=== PATIENT | female | born 1945 | race American Indian/Alaskan Native ===

== ENCOUNTER 2017-04-24 10:24 | Inpatient (IN) | payer MEDICARE ==
[2017-04-24] MEDS ORDERED: TESSALON PERLES PO ONE (13:35)
--- NOTE | 2017-04-24 13:46 | Emergency Department Report ---
- General Chief Complaint: Upper Respiratory Infection Stated Complaint: FLU SX Time Seen by Provider: 04/24/17 13:34 Source: patient Mode of arrival: Ambulatory Limitations: No Limitations - History of Present Illness Initial Comments: This is a 72-year-old female nontoxic, well nourished in appearance, no acute signs of distress presents to the ED with c/o of frontal sinus pain, productive cough, rhinorrhea and nasal congestion 1 day. Patient describes productive cough as yellow mucus production. Patient denies any recent travels, long car rides, or recent hospital stays. Denies any calf pain or calf tenderness. Patient denies any hemoptysis, chest pain, shortness of breath, difficulty breathing, back pain, abdominal pain, pelvic pain, numbness, tingling, nausea or vomiting. Patient denies headache or stiff neck. Patient denies any allergies. Past medical history includes diabetes. MD Complaint: cough, rhinorrhea, nasal congestion, sinus pain -: days(s) (1) Severity: mild Severity scale (0 -10): 8 Quality: aching Consistency: constant Improves With: nothing Worsens With: nothing Associated Symptoms: rhinorrhea, nasal congestion, cough. denies: fever, chills , myalgias, diaphoresis, headache, sore throat, stiff neck, chest pain, shortness of breath, abdominal pain, nausea, vomiting, diarrhea, dysuria, rash, confusion, right sweats, weight loss, epistaxis, hoarseness, ear pain Treatments Prior to Arrival: none - Related Data Allergies Allergy/AdvReac Type Severity Reaction Status Date / Time No Known Allergies Allergy Verified 04/24/17 11:02 ED Review of Systems ROS: Stated complaint: FLU SX Other details as noted in HPI Constitutional: denies: chills, fever Eyes: denies: eye pain, eye discharge, vision change ENT: denies: ear pain, throat pain Respiratory: cough. denies: shortness of breath, wheezing Cardiovascular: denies: chest pain, palpitations Endocrine: no symptoms reported Gastrointestinal: denies: abdominal pain, nausea, diarrhea Genitourinary: denies: urgency, dysuria, discharge Musculoskeletal: denies: back pain, joint swelling, arthralgia Skin: denies: rash, lesions Neurological: denies: headache, weakness, paresthesias Psychiatric: denies: anxiety, depression Hematological/Lymphatic: denies: easy bleeding, easy bruising ED Past Medical Hx - Past Medical History Previous Medical History?: Yes Hx Diabetes: Yes - Surgical History Past Surgical History?: Yes Additional Surgical History: . cataract surgery - Social History Smoking Status: Never Smoker Substance Use Type: None ED Physical Exam - General Limitations: No Limitations General appearance: alert, in no apparent distress - Head Head exam: Present: atraumatic, normocephalic, normal inspection - Eye Eye exam: Present: normal appearance, PERRL, EOMI. Absent: scleral icterus, conjunctival injection, nystagmus, periorbital swelling, periorbital tenderness Pupils: Present: normal accommodation - ENT ENT exam: Present: normal exam, normal orophraynx, mucous membranes moist, TM's normal bilaterally, normal external ear exam - Neck Neck exam: Present: normal inspection, full ROM. Absent: tenderness, meningismus, lymphadenopathy, thyromegaly - Respiratory Respiratory exam: Present: normal lung sounds bilaterally. Absent: respiratory distress, wheezes, rales, rhonchi, stridor, chest wall tenderness, accessory muscle use, decreased breath sounds, prolonged expiratory - Cardiovascular Cardiovascular Exam: Present: regular rate, normal rhythm, normal heart sounds. Absent: bradycardia, tachycardia, irregular rhythm, systolic murmur, diastolic murmur, rubs, gallop - GI/Abdominal GI/Abdominal exam: Present: soft, normal bowel sounds. Absent: distended, tenderness, guarding, rebound, rigid, diminished bowel sounds - Rectal Rectal exam: Present: deferred - Extremities Exam Extremities exam: Present: normal inspection, full ROM, normal capillary refill. Absent: tenderness, pedal edema, joint swelling, calf tenderness - Back Exam Back exam: Present: normal inspection, full ROM. Absent: tenderness, CVA tenderness (R), CVA tenderness (L), muscle spasm, paraspinal tenderness, vertebral tenderness, rash noted - Neurological Exam Neurological exam: Present: alert, oriented X3, CN II-XII intact, normal gait, reflexes normal - Psychiatric Psychiatric exam: Present: normal affect, normal mood - Skin Skin exam: Present: warm, dry, intact, normal color. Absent: rash - Other Other exam information: Negative Holmans test. No calf pain or tenderness. ED Course Vital Signs 04/24/17 11:02 Temperature 98.7 F Pulse Rate 90 Respiratory 18 Rate Blood Pressure 180/82 O2 Sat by Pulse 99 Oximetry - Reevaluation(s) Reevaluation #1: 04/24/17 13:45 Patient is speaking in full sentences with no signs of distress noted. - Consultations Consultation #1: 04/24/17 16:11 Dr. Boyce has been consulted about patient history. physical exam, and agrees for admission. Consultation #2: 04/24/17 16:11 Dr. Tidwell was consulted about patient history, physical exam, and labs and agrees to admission and accepts patient to his services. Dr. Tidwell requested for me to bridge the orders to med/surg and start patient on 2G Rocephine and 500mg of Azithromycin. ED Medical Decision Making - Lab Data Result diagrams: 04/24/17 15:20 04/24/17 15:20 - Medical Decision Making This is a 72-year-old female that presents with upper resp infection. Patient is stable and was examined by me. Chest x-ray has been obtained and dictated by radiologist within normal limits. Patient is notified of x-ray results with noted by the patient. Patient received tessalon perrl which patient stated symptoms of cough is improving and subsided. Positive Influenza A swab. Labs obtained with elevated Lactic acid. Dr. Boyce was consulted. Dr. Tidwell was consulted and accepts patient to his services. Patient is in no signs of distress. Wells criteria 0 points for PE or DVT. Patient is put on cardiac montior and RN was told to take vitals Q15 mins. At time time of admission, the patient does not seem toxic or ill in appearance. No acute signs of distress noted. Patient agrees to admission treatment plan of care. No further questions noted by the patient. Patient was instructed to increase hydration and rest. Critical care attestation.: If time is entered above; I have spent that time in minutes in the direct care of this critically ill patient, excluding procedure time. ED Disposition Clinical Impression: Influenza Sepsis Qualifiers: Sepsis type: sepsis due to unspecified organism Qualified Code(s): A41.9 - Sepsis, unspecified organism Disposition: OP ADMIT IP TO THIS HOSP Is pt being admited?: Yes Does the pt Need Aspirin: No Condition: Stable
--- NOTE | 2017-04-24 15:18 | XRay Report ---
FINAL REPORT PROCEDURE: XR CHEST ROUTINE 2V TECHNIQUE: PA and lateral chest radiographs were obtained. CPT 42749 HISTORY: cough COMPARISON: No prior studies are available for comparison. FINDINGS: Heart: Normal. Mediastinum/Vessels: Normal. Lungs/Pleural space: No infiltrate, effusion, or pneumothorax. Bony thorax: No acute osseous abnormality. Other: IMPRESSION: No pulmonary infiltrates are identified.
[2017-04-24 15:38] LABS: Hematocrit 38.6 % (30.3-42.9); Hemoglobin 12.2 gm/dl (10.1-14.3); Mean Corpuscular HGB Conc 32 % (30-34); Mean Corpuscular Volume 77 fl (79-97); Platelet Count 286 K/mm3 (140-440); Red Blood Count 5.01 M/mm3 (3.65-5.03); Red Cell Distribution Width 16.2 % (13.2-15.2)
[2017-04-24 15:44] LABS: Mean Corpuscular Hemoglobin 24 pg (28-32)
[2017-04-24 15:51] LABS: BUN/Creatinine Ratio 10; Blood Urea Nitrogen 8 mg/dL (7-17); Calcium 9.1 mg/dL (8.4-10.2); Hemolysis Index 14
[2017-04-24] MEDS ORDERED: NACL 0.9% 1000 ML 1,000 ML IV ONE (15:52)
[2017-04-24] MEDS ORDERED: ROCEPHIN/NS 2 GM/100 ML 2 GM/100 ML BAG IV ONE (16:08)
[2017-04-24] MEDS ORDERED: ZITHROMAX 500 MG in NACL 0.9% 250ML 250 ML IV ONE (16:08)
[2017-04-24 16:29] LABS: Band Neutrophils # (Manual) 0.1 K/mm3; Ovalocytes 1+; Total Cells Counted 100
[2017-04-24] MEDS ORDERED: cefTRIAXone 2 GM in NACL 0.9% 20 ML IV ONE (16:45)
[2017-04-24] MEDS ORDERED: ZOFRAN ONE (17:39)
[2017-04-24] MEDS ORDERED: ZOFRAN IV ONE (18:14)
[2017-04-24] MEDS ORDERED: TYLENOL PO ONE (18:42)
--- NOTE | 2017-04-24 21:27 | History and Physical Report ---
History of Present Illness Date of examination: 04/24/17 Date of admission: 04/24/17 16:07 Chief complaint: chief complaint: Cough and fever for one the History of present illness: History of Present Illness This is a 72-year-old female nontoxic, well nourished in appearance, no acute signs of distress presents to the ED with c/o of frontal sinus pain, productive cough, rhinorrhea and nasal congestion 1 day. Patient describes productive cough as yellow mucus production. Patient denies any recent travels, long car rides, or recent hospital stays. Denies any calf pain or calf tenderness. Patient denies any hemoptysis, chest pain, shortness of breath, difficulty breathing, back pain, abdominal pain, pelvic pain, numbness, tingling, nausea or vomiting. Patient denies headache or stiff neck. Patient denies any allergies. Past medical history includes diabetes. Associated Symptoms: rhinorrhea, nasal congestion, cough. denies: fever, chills , myalgias, diaphoresis, headache, sore throat, stiff neck, chest pain, shortness of breath, abdominal pain, nausea, vomiting, diarrhea, dysuria, rash, confusion, right sweats, weight loss, epistaxis, hoarseness, ear pain Treatments Prior to Arrival: none - Related Data Allergies Allergy/AdvReac Type Severity Reaction Status Date / Time No Known Allergies Allergy Verified 04/24/17 11:02 Past Medical History Previous Medical History?: Yes Hx Diabetes: Yes Surgical History Past Surgical History?: Yes Additional Surgical History: . cataract surgery Social History Smoking Status: Never Smoker Substance Use Type: None Review of Systems ROS: Stated complaint: FLU SX Other details as noted in HPI Constitutional: denies: chills, fever Eyes: denies: eye pain, eye discharge, vision change ENT: denies: ear pain, throat pain Respiratory: cough. denies: shortness of breath, wheezing Cardiovascular: denies: chest pain, palpitations Endocrine: no symptoms reported Gastrointestinal: denies: abdominal pain, nausea, diarrhea Genitourinary: denies: urgency, dysuria, discharge Musculoskeletal: denies: back pain, joint swelling, arthralgia Skin: denies: rash, lesions Neurological: denies: headache, weakness, paresthesias Psychiatric: denies: anxiety, depression Hematological/Lymphatic: denies: easy bleeding, easy bruising Medications and Allergies Allergies Allergy/AdvReac Type Severity Reaction Status Date / Time No Known Allergies Allergy Verified 04/24/17 11:02 Home Medications Medication Instructions Recorded Confirmed Last Taken Type Unobtainable 04/24/17 04/24/17 Unknown History Exam - Constitutional Vitals: Temp Pulse Resp BP Pulse Ox 100.6 F H 88 20 165/73 99 04/24/17 18:23 04/24/17 17:32 04/24/17 18:23 04/24/17 18:23 04/24/17 17:32 General appearance: Present: no acute distress, mild distress, well-nourished - EENT Eyes: Present: PERRL ENT: hearing intact, clear oral mucosa - Neck Neck: Present: supple, normal ROM - Respiratory Respiratory effort: normal Respiratory: bilateral: CTA, rhonchi - Cardiovascular Heart rate: 76 Rhythm: regular Heart Sounds: Present: S1 & S2. Absent: rub, click - Extremities Extremities: no ischemia, pulses intact, pulses symmetrical, No edema Peripheral Pulses: within normal limits - Abdominal General gastrointestinal: Present: soft, non-tender, non-distended, normal bowel sounds Female genitourinary: Present: normal - Rectal Rectal Exam: deferred - Integumentary Integumentary: Present: clear, warm, dry - Musculoskeletal Musculoskeletal: gait normal, strength equal bilaterally - Psychiatric Psychiatric: appropriate mood/affect, intact judgment & insight - Neurologic Neurologic: CNII-XII intact, moves all extremities - Allied Health Allied health notes reviewed: nursing, case management Results - Labs CBC & Chem 7: 04/24/17 15:20 04/24/17 15:20 Labs: Laboratory Last Values WBC 7.8 K/mm3 (4.5-11.0) 04/24/17 15:20 RBC 5.01 M/mm3 (3.65-5.03) 04/24/17 15:20 Hgb 12.2 gm/dl (10.1-14.3) 04/24/17 15:20 Hct 38.6 % (30.3-42.9) 04/24/17 15:20 MCV 77 fl (79-97) L 04/24/17 15:20 MCH 24 pg (28-32) L 04/24/17 15:20 MCHC 32 % (30-34) 04/24/17 15:20 RDW 16.2 % (13.2-15.2) H 04/24/17 15:20 Plt Count 286 K/mm3 (140-440) 04/24/17 15:20 [place] % (Auto) Managing Partner 04/24/17 15:20 Add Manual Diff Complete 04/24/17 15:20 Total Counted 100 04/24/17 15:20 Seg Neuts % (Manual) 72.0 % (40.0-70.0) H 04/24/17 15:20 Band Neutrophils % 1.0 % 04/24/17 15:20 Lymphocytes % (Manual) 11.0 % (13.4-35.0) L 04/24/17 15:20 Reactive Lymphs % (Man) 0 % 04/24/17 15:20 Monocytes % (Manual) 14.0 % (0.0-7.3) H 04/24/17 15:20 Eosinophils % (Manual) 1.0 % (0.0-4.3) 04/24/17 15:20 Basophils % (Manual) 1.0 % (0.0-1.8) 04/24/17 15:20 Metamyelocytes % 0 % 04/24/17 15:20 Myelocytes % 0 % 04/24/17 15:20 Promyelocytes % 0 % 04/24/17 15:20 Blast Cells % 0 % 04/24/17 15:20 Nucleated RBC % Not Reportable 04/24/17 15:20 Seg Neutrophils # Man 5.6 K/mm3 (1.8-7.7) 04/24/17 15:20 Band Neutrophils # 0.1 K/mm3 04/24/17 15:20 Lymphocytes # (Manual) 0.9 K/mm3 (1.2-5.4) L 04/24/17 15:20 Abs React Lymphs (Man) 0.0 K/mm3 04/24/17 15:20 Monocytes # (Manual) 1.1 K/mm3 (0.0-0.8) H 04/24/17 15:20 Eosinophils # (Manual) 0.1 K/mm3 (0.0-0.4) 04/24/17 15:20 Basophils # (Manual) 0.1 K/mm3 (0.0-0.1) 04/24/17 15:20 Metamyelocytes # 0.0 K/mm3 04/24/17 15:20 Myelocytes # 0.0 K/mm3 04/24/17 15:20 Promyelocytes # 0.0 K/mm3 04/24/17 15:20 Blast Cells # 0.0 K/mm3 04/24/17 15:20 WBC Morphology Not Reportable 04/24/17 15:20 Hypersegmented Neuts Not Reportable 04/24/17 15:20 Hyposegmented Neuts Not Reportable 04/24/17 15:20 Hypogranular Neuts Not Reportable 04/24/17 15:20 Smudge Cells Not Reportable 04/24/17 15:20 Toxic Granulation Not Reportable 04/24/17 15:20 Toxic Vacuolation Not Reportable 04/24/17 15:20 Dohle Bodies Not Reportable 04/24/17 15:20 Pelger-Huet Anomaly Not Reportable 04/24/17 15:20 Neftaly Rods Not Reportable 04/24/17 15:20 Platelet Estimate Appears normal 04/24/17 15:20 Clumped Platelets Not Reportable 04/24/17 15:20 Plt Clumps, EDTA Not Reportable 04/24/17 15:20 Large Platelets Not Reportable 04/24/17 15:20 Giant Platelets Not Reportable 04/24/17 15:20 Platelet Satelliting Not Reportable 04/24/17 15:20 Plt Morphology Comment Not Reportable 04/24/17 15:20 RBC Morphology Not Reportable 04/24/17 15:20 Dimorphic RBCs Not Reportable 04/24/17 15:20 Polychromasia Not Reportable 04/24/17 15:20 Hypochromasia Not Reportable 04/24/17 15:20 Poikilocytosis Not Reportable 04/24/17 15:20 Anisocytosis Not Reportable 04/24/17 15:20 Microcytosis 1+ 04/24/17 15:20 Macrocytosis Not Reportable 04/24/17 15:20 Spherocytes Not Reportable 04/24/17 15:20 Pappenheimer Bodies Not Reportable 04/24/17 15:20 Sickle Cells Not Reportable 04/24/17 15:20 Target Cells Not Reportable 04/24/17 15:20 Tear Drop Cells Not Reportable 04/24/17 15:20 Ovalocytes 1+ 04/24/17 15:20 Helmet Cells Not Reportable 04/24/17 15:20 Steele-Maish Vaya Bodies Not Reportable 04/24/17 15:20 Sheffield Rings Not Reportable 04/24/17 15:20 Lawrence Cells Not Reportable 04/24/17 15:20 Bite Cells Not Reportable 04/24/17 15:20 Crenated Cell Not Reportable 04/24/17 15:20 Elliptocytes Not Reportable 04/24/17 15:20 Acanthocytes (Spur) Not Reportable 04/24/17 15:20 Rouleaux Not Reportable 04/24/17 15:20 Hemoglobin C Crystals Not Reportable 04/24/17 15:20 Schistocytes Not Reportable 04/24/17 15:20 Malaria parasites Not Reportable 04/24/17 15:20 Ever Bodies Not Reportable 04/24/17 15:20 Hem Pathologist Commnt No 04/24/17 15:20 Sodium 133 mmol/L (137-145) L 04/24/17 15:20 Potassium 3.9 mmol/L (3.6-5.0) 04/24/17 15:20 Chloride 92.4 mmol/L (98-107) L 04/24/17 15:20 Carbon Dioxide 24 mmol/L (22-30) 04/24/17 15:20 Anion Gap 21 mmol/L 04/24/17 15:20 BUN 8 mg/dL (7-17) 04/24/17 15:20 Creatinine 0.8 mg/dL (0.7-1.2) 04/24/17 15:20 Estimated GFR > 60 ml/min 04/24/17 15:20 BUN/Creatinine Ratio 10 % 04/24/17 15:20 Glucose 221 mg/dL (65-100) H 04/24/17 15:20 Lactic Acid 2.90 mmol/L (0.7-2.0) H* 04/24/17 15:20 Calcium 9.1 mg/dL (8.4-10.2) 04/24/17 15:20 Total Creatine Kinase 172 units/L (30-135) H 04/24/17 15:20 Short CBC 04/24/17 Range/Units 15:20 WBC 7.8 (4.5-11.0) K/mm3 Hgb 12.2 (10.1-14.3) gm/dl Hct 38.6 (30.3-42.9) % Plt Count 286 (140-440) K/mm3 BMP 04/24/17 15:20 Sodium 133 L Potassium 3.9 Chloride 92.4 L Carbon Dioxide 24 BUN 8 Creatinine 0.8 Glucose 221 H Calcium 9.1 Cardiac Enzymes 04/24/17 Range/Units 15:20 Total Creatine Kinase 172 H (30-135) units/L - Imaging and Cardiology EKG: report reviewed Chest x-ray: report reviewed (no acute infiltrate) Assessment and Plan Advance Directives: Yes (full code) VTE prophylaxis?: Chemical Plan of care discussed with patient/family: Yes - Patient Problems (1) SIRS (systemic inflammatory response syndrome) Current Visit: Yes Status: Acute Plan to address problem: n view of high fever and lactic acidosis in favor of systemic inflammatory response syndrome We will start her on IV Rocephin and IV Zithromax Continue nebs and low-dose Solu Medrol. ID consult requested. Flu was positive. (2) Influenza Current Visit: Yes Status: Acute Plan to address problem: influenza positive Tamiflu 75 every 12 (3) Acute bronchitis Current Visit: Yes Status: Acute Qualifiers: Bronchitis organism: unspecified organism Qualified Code(s): J20.9 - Acute bronchitis, unspecified Plan to address problem: IV antibiotics and IV Solu-Medrol and duo nebs. (4) DVT prophylaxis Current Visit: Yes Status: Acute Plan to address problem: on Lovenox subcutaneous daily
[2017-04-24] MEDS ORDERED: DUONEB *Not for PRN Use IH (21:59)
[2017-04-24] MEDS ORDERED: PROVENTIL IH PRN (22:28)
[2017-04-24] MEDS: TAMIFLU PO SCH (23:41)
[2017-04-25] MEDS ORDERED: NOVOLOG SUB-Q SCH (07:30)
--- NOTE | 2017-04-25 07:56 | Progress Note ---
Assessment and Plan (1) SIRS (systemic inflammatory response syndrome) Current Visit: Yes Status: Acute Plan to address problem: n view of high fever and lactic acidosis in favor of systemic inflammatory response syndrome We will start her on IV Rocephin and IV Zithromax Continue nebs and low-dose Solu Medrol. ID consult requested. Flu was positive. (2) Influenza Current Visit: Yes Status: Acute Plan to address problem: influenza positive Tamiflu 75 every 12 (3) Acute bronchitis Current Visit: Yes Status: Acute Qualifiers: Bronchitis organism: unspecified organism Qualified Code(s): J20.9 - Acute bronchitis, unspecified Plan to address problem: IV antibiotics and IV Solu-Medrol and duo nebs. (4) DVT prophylaxis Current Visit: Yes Status: Acute Plan to address problem: on Lovenox subcutaneous daily Subjective Date of service: 04/25/17 Objective - Constitutional Vitals: Vital Signs - 12hr 04/24/17 04/24/17 22:05 22:49 Temperature 98.5 F Pulse Rate 77 Blood Pressure 149/67 [Right] O2 Sat by Pulse 99 Oximetry - Labs CBC & Chem 7: 04/24/17 15:20 04/24/17 15:20 Labs: Abnormal lab results 04/24/17 04/24/17 04/24/17 Range/Units 15:20 15:20 15:20 MCV 77 L (79-97) fl MCH 24 L (28-32) pg RDW 16.2 H (13.2-15.2) % Seg Neuts % (Manual) 72.0 H (40.0-70.0) % Lymphocytes % (Manual) 11.0 L (13.4-35.0) % Monocytes % (Manual) 14.0 H (0.0-7.3) % Lymphocytes # (Manual) 0.9 L (1.2-5.4) K/mm3 Monocytes # (Manual) 1.1 H (0.0-0.8) K/mm3 Sodium 133 L (137-145) mmol/L Chloride 92.4 L (98-107) mmol/L Glucose 221 H (65-100) mg/dL POC Glucose (70-105) Lactic Acid 2.90 H* (0.7-2.0) mmol/L Total Creatine Kinase 172 H (30-135) units/L 04/24/17 04/25/17 Range/Units 22:14 07:27 MCV (79-97) fl MCH (28-32) pg RDW (13.2-15.2) % Seg Neuts % (Manual) (40.0-70.0) % Lymphocytes % (Manual) (13.4-35.0) % Monocytes % (Manual) (0.0-7.3) % Lymphocytes # (Manual) (1.2-5.4) K/mm3 Monocytes # (Manual) (0.0-0.8) K/mm3 Sodium (137-145) mmol/L Chloride (98-107) mmol/L Glucose (65-100) mg/dL POC Glucose 197 H 263 H (70-105) Lactic Acid (0.7-2.0) mmol/L Total Creatine Kinase (30-135) units/L
[2017-04-25 09:02] VITALS: BP 155/77
[2017-04-25] MEDS: DUONEB *Not for PRN Use IH SCH ×2 (09:37→15:40)
[2017-04-25] MEDS: TAMIFLU PO SCH (11:14)
--- NOTE | 2017-04-25 13:07 | Consultation ---
History of Present Illness - Reason for Consult Consult date: 04/25/17 SIRS - History of Present Illness This is a 72-year-old female nontoxic, well nourished in appearance, no acute signs of distress presents to the ED with c/o of frontal sinus pain, productive cough, rhinorrhea and nasal congestion 1 day. Patient describes productive cough as yellow mucus production. Patient denies any recent travels, long car rides, or recent hospital stays. Denies any calf pain or calf tenderness. Patient denies any hemoptysis, chest pain, shortness of breath, difficulty breathing, back pain, abdominal pain, pelvic pain, numbness, tingling, nausea or vomiting. Patient denies headache or stiff neck. Patient denies any allergies. Past medical history includes diabetes. In the emergency room, initial temperature was 98.7, heart rate 90, respirations 18, O2 sat 99, blood pressure 180/82, initial white count 7.8, Hemoglobin 12.2. Creatinine 0.8. Lactic acid 2.90. Chest x-ray negative Microbiology: Blood cultures: 04/24 pending Urine cultures: Respiratory cultures: Infuenza A positive 04/24 Current Antimicrobials: Tamiflu 04/24 Previous Antimicrobials: Medications and Allergies Allergies Allergy/AdvReac Type Severity Reaction Status Date / Time No Known Allergies Allergy Verified 04/24/17 11:02 Home Medications Medication Instructions Recorded Confirmed Last Taken Type Oseltamivir [Tamiflu] 75 mg PO BID #8 capsule 04/25/17 Unknown Rx Active Meds: Active Medications Albuterol (Proventil) 2.5 mg IH Q3HRT PRN PRN Reason: Shortness Of Breath Albuterol/Ipratropium (Duoneb *Not For Prn Use*) 1 ampul IH Q6HRT [facility] Last Admin: 04/25/17 09:37 Dose: 1 ampul Insulin Aspart (Novolog) 0 units SUB-Q [facility] PRN Reason: Protocol Last Admin: 04/25/17 11:18 Dose: 4 units Insulin Human Regular (Novolin R) 0 units SUB-Q ACHS [facility] PRN Reason: Protocol Methylprednisolone Sodium Succinate (Solu-Medrol) 40 mg IV Q8HR [facility] Last Admin: 04/25/17 05:23 Dose: 40 mg Oseltamivir Phosphate (Tamiflu) 75 mg PO BID [facility] Stop: 04/29/17 21:59 Last Admin: 04/25/17 11:14 Dose: 75 mg Physical Examination - Physical Exam Narrative exam: General appearance: Alert in NAD, conversant Eyes: anicteric sclerae, moist conjunctivae; no lid-lag; PERRLA HENT: Atraumatic; oropharynx clear Neck: Trachea midline; supple, no thyromegaly or lymphadenopathy Lungs: diminished bilaterally CV: RRR, no murmurs Abdomen: Soft, non-tender; no masses or hepatosplenomegaly Extremities: No peripheral edema or extremity lymphadenopathy Skin: Normal temperature, turgor and texture; no rash, ulcers or subcutaneous nodules Psych: Appropriate affect, calm and cooperative. Neuro: alert and oriented x 3. Moving all extermities Lines: No CVL / PICC - Constitutional Vitals: Vital Signs Temp Pulse Resp BP Pulse Ox 98.6 F 84 18 155/77 97 04/25/17 07:21 04/25/17 09:52 04/25/17 09:52 04/25/17 07:21 04/25/17 07:21 Temperature -Last 24 Hours Temperature 98.6 F Temperature 99.0 F Temperature 98.5 F Temperature 100.1 F Temperature 100.6 F Temperature 98.6 F Results - Labs CBC & Chem 7: 04/24/17 15:20 04/24/17 15:20 Labs: Abnormal lab results 04/24/17 04/24/17 04/24/17 Range/Units 15:20 15:20 15:20 MCV 77 L (79-97) fl MCH 24 L (28-32) pg RDW 16.2 H (13.2-15.2) % Seg Neuts % (Manual) 72.0 H (40.0-70.0) % Lymphocytes % (Manual) 11.0 L (13.4-35.0) % Monocytes % (Manual) 14.0 H (0.0-7.3) % Lymphocytes # (Manual) 0.9 L (1.2-5.4) K/mm3 Monocytes # (Manual) 1.1 H (0.0-0.8) K/mm3 Sodium 133 L (137-145) mmol/L Chloride 92.4 L (98-107) mmol/L Glucose 221 H (65-100) mg/dL POC Glucose (70-105) Lactic Acid 2.90 H* (0.7-2.0) mmol/L Total Creatine Kinase 172 H (30-135) units/L 04/24/17 04/25/17 04/25/17 Range/Units 22:14 07:27 11:49 MCV (79-97) fl MCH (28-32) pg RDW (13.2-15.2) % Seg Neuts % (Manual) (40.0-70.0) % Lymphocytes % (Manual) (13.4-35.0) % Monocytes % (Manual) (0.0-7.3) % Lymphocytes # (Manual) (1.2-5.4) K/mm3 Monocytes # (Manual) (0.0-0.8) K/mm3 Sodium (137-145) mmol/L Chloride (98-107) mmol/L Glucose (65-100) mg/dL POC Glucose 197 H 263 H 329 H (70-105) Lactic Acid (0.7-2.0) mmol/L Total Creatine Kinase (30-135) units/L Assessment and Plan Assessment: 1) SIRS: Present on admission, manifested by fever and increased lactate. Etiology most likely influenza 2) Influenza: Secondary to positive influenza A antigen. Plan: -follow-up blood cultures -obtain C-reactive protein (CRP) -continue Tamiflu 75 mg po BID x 5 days -consider repeating chest x-ray Thank you Dr Tidwell for your consultation, will follow up with you. Ruddy Lux NP-C for Dr. Danna Lyons MD Infectious Diseases Specialist [facility] M [phone] O [phone]
--- NOTE | 2017-04-25 13:07 | Discharge Summary ---
Providers - Providers Date of Admission: 04/24/17 16:07 Date of discharge: 04/25/17 Attending physician: TIN SCHMIDT 04/24/17 21:54 Consult to Physician [CONS] Routine Consulting Provider: ARSALAN VERDIN Reason For Exam: SIRS Place consult to:: Notified:: Was contact made?: Yes If yes, spoke with:: Time called:: 09:00 Comment:: ENZO Primary care physician: MARGARITO JOSEPH Hospitalization Condition: Stable Hospital course: Discharge Diagnosis: /SIRS (systemic inflammatory response syndrome) In view of high fever and lactic acidosis in favor of systemic inflammatory response syndrome We will start her on IV Rocephin and IV Zithromax Continue nebs and low-dose Solu Medrol. ID consult requested. Flu was positive. / Influenza influenza A positive Tamiflu 75 every 12 / Acute bronchitis IV antibiotics and IV Solu-Medrol and duo nebs. /Steroid induced hyperglycemia Placed on SSI Disposition: - TO HOME OR SELFCARE Time spent for discharge: 32 minutes Core Measure Documentation - Palliative Care Palliative Care/ Comfort Measures: Not Applicable - Core Measures Any of the following diagnoses?: none Exam - Constitutional Vitals: Temp Pulse Resp BP Pulse Ox 98.6 F 84 18 155/77 97 04/25/17 07:21 04/25/17 09:52 04/25/17 09:52 04/25/17 07:21 04/25/17 07:21 General appearance: Present: no acute distress, well-nourished - EENT Eyes: Present: PERRL ENT: hearing intact, clear oral mucosa - Neck Neck: Present: supple, normal ROM - Respiratory Respiratory effort: normal Respiratory: bilateral: CTA - Cardiovascular Heart Sounds: Present: S1 & S2. Absent: rub, click - Extremities Extremities: pulses symmetrical, No edema Peripheral Pulses: within normal limits - Abdominal General gastrointestinal: Present: soft, non-tender, non-distended, normal bowel sounds - Integumentary Integumentary: Present: clear, warm, dry - Musculoskeletal Musculoskeletal: gait normal, strength equal bilaterally - Psychiatric Psychiatric: appropriate mood/affect, intact judgment & insight - Neurologic Neurologic: CNII-XII intact, moves all extremities Plan Activity: advance as tolerated Weight Bearing Status: Weight Bear as Tolerated Diet: regular Follow up with: MARGARITO JOSEPH MD [Primary Care Provider] - 3-5 Days Prescriptions: Oseltamivir [Tamiflu] 75 mg PO BID #8 capsule
== END 2017-04-25 15:15 | disposition home or self-care (01) | DRG 872 ==
LOC: ED 10:24 → 2B-ACE 16:07
PROVIDERS: ADMIT Internal Medicine; ATTEND Internal Medicine
DX: A41.9 Sepsis, unspecified organism (principal); J11.1 Influenza due to unidentified influenza virus with other respiratory manifestations; J20.9 Acute bronchitis, unspecified; R73.9 Hyperglycemia, unspecified; T38.0X5A Adverse effect of glucocorticoids and synthetic analogues, initial encounter
CPT/HCPCS: 36415; 71046; 80048; 82140; 82550; 82962; 85007; 85025; 87040; 87400; 94640; 96361; 96374; J0456; J0696; J1815; J2405; J2920; J7030; J7050

== ENCOUNTER 2021-01-22 10:57 | Outpatient (CLI) | payer MEDICARE ==
--- NOTE | 2021-01-22 12:00 | XRay Report ---
CHEST 2 VIEWS INDICATION: COUGH,PRESSURE. COMPARISON: 04/24/2017 FINDINGS: Support devices: None. Heart: Within normal limits. Lungs/pleura: No acute air space or interstitial disease. No pneumothorax. Additional findings: None. IMPRESSION: No acute findings. Signer Name: Hitesh Platt Jr, MD Signed: 01/22/2021 11:55 AM Workstation Name: [id number]
== END 2021-01-22 10:58 | disposition home or self-care (01) ==
LOC: XRAY 10:57
PROVIDERS: ATTEND Internal Medicine
DX: R07.89 Other chest pain (principal); R05.9 Cough, unspecified
CPT/HCPCS: 71046

== ENCOUNTER 2021-02-09 13:10 | Observation (INO) | payer MEDICARE ==
[2021-02-09] MEDS ORDERED: NITROGLYCERIN 2% OINT 1 GM TP ONE (13:58)
[2021-02-09] MEDS ORDERED: ONDANSETRON 4 MG/2 ML INJ IV ONE (13:58)
[2021-02-09] MEDS ORDERED: ASPIRIN 325 MG TAB PO ONE (13:58)
[2021-02-09] MEDS ORDERED: MORPHINE 4 MG/1 ML INJ IV ONE (13:58)
--- NOTE | 2021-02-09 14:06 | Emergency Department Report ---
HPI - General Chief Complaint: Chest Pain Time Seen by Provider: 02/09/21 13:39 - HPI HPI: Room 37 Patient is a 75-year-old female present with a chief complaint of chest pain. The patient states she developed left-sided chest pressure this morning at 07: 00. Patient states the pain has been intermittent and radiates to her shoulder and axilla. Patient admits to shortness of breath associated with her chest pressure but denies nausea/vomiting or diaphoresis. Patient denies history of fever. Patient states she has had intermittent chest pain for the past 6 months and that her primary physician has attempted to send her to a [facility] she states the [facility] does not have the referral. Patient states she is never had a stress test or cardiac catheterization ED Past Medical Hx - Past Medical History Hx Hypertension: Yes Hx Diabetes: Yes - Surgical History Additional Surgical History: . cataract surgery - Family History Family history: no significant - Social History Smoking Status: Never Smoker Substance Use Type: None (Denies illicit drug use) - Medications Home Medications: Home Medications Medication Instructions Recorded Confirmed Last Taken Type Oseltamivir [Tamiflu] 75 mg PO BID #8 capsule 04/25/17 Unknown Rx ED Review of Systems ROS: Stated complaint: CHEST PAIN Other details as noted in HPI Constitutional: denies: diaphoresis, fever Eyes: denies: eye pain ENT: denies: throat pain Respiratory: shortness of breath Cardiovascular: chest pain Endocrine: no symptoms reported Gastrointestinal: denies: nausea, vomiting Genitourinary: denies: dysuria Musculoskeletal: denies: back pain Neurological: denies: headache Physical Exam - Physical Exam Vital Signs: Vital Signs 02/09/21 13:14 Temperature 98.6 F Pulse Rate 73 Respiratory 18 Rate Blood Pressure 178/76 O2 Sat by Pulse 99 Oximetry Physical Exam: GENERAL: The patient is well-developed well-nourished female sitting on stretcher not appearing to be in acute distress. [] HEENT: Normocephalic. Atraumatic. Extraocular motions are intact. Patient has moist mucous membranes. NECK: Supple. Trachea midline CHEST/LUNGS: Clear to auscultation. There is no respiratory distress noted. HEART/CARDIOVASCULAR: Regular. There is no tachycardia. There is no gallop rub or murmur. ABDOMEN: Abdomen is soft, nontender. Patient has normal bowel sounds. There is no abdominal distention. SKIN: There is no rash. There is no edema. There is no diaphoresis. NEURO: The patient is awake, alert, and oriented. The patient is cooperative. The patient has no focal neurologic deficits. The patient has normal speech MUSCULOSKELETAL: There is no evidence of acute injury. ED Course Vital Signs 02/09/21 13:14 Temperature 98.6 F Pulse Rate 73 Respiratory 18 Rate Blood Pressure 178/76 O2 Sat by Pulse 99 Oximetry ED Medical Decision Making - Lab Data Result diagrams: 02/09/21 14:23 02/09/21 14:23 Laboratory Tests 02/09/21 02/09/21 02/09/21 14:23 14:23 14:23 WBC 7.1 RBC 4.82 Hgb 12.3 Hct 39.1 MCV 81 MCH 26 L MCHC 32 RDW 14.8 Plt Count 288 Lymph % (Auto) 29.7 [place] % (Auto) 9.8 H Eos % (Auto) 1.1 Baso % (Auto) 0.8 Lymph # (Auto) 2.1 [place] # (Auto) 0.7 Eos # (Auto) 0.1 Baso # (Auto) 0.1 Seg Neutrophils % 58.6 Seg Neutrophils # 4.2 PT 13.4 INR 0.92 VBG pH Sodium 138 Potassium 4.2 Chloride 98.1 Carbon Dioxide 27 Anion Gap 17 BUN 18 H Creatinine 1.0 Estimated GFR > 60 BUN/Creatinine Ratio 18 Glucose 161 H Calcium 9.4 Total Creatine Kinase 125 CK-MB (CK-2) 1.1 CK-MB (CK-2) Rel Index 0.8 Troponin T < 0.010 02/09/21 14:23 WBC RBC Hgb Hct MCV MCH MCHC RDW Plt Count Lymph % (Auto) [place] % (Auto) Eos % (Auto) Baso % (Auto) Lymph # (Auto) [place] # (Auto) Eos # (Auto) Baso # (Auto) Seg Neutrophils % Seg Neutrophils # PT INR VBG pH 7.338 Sodium Potassium Chloride Carbon Dioxide Anion Gap BUN Creatinine Estimated GFR BUN/Creatinine Ratio Glucose Calcium Total Creatine Kinase CK-MB (CK-2) CK-MB (CK-2) Rel Index Troponin T - EKG Data -: EKG Interpreted by Ne EKG shows normal: sinus rhythm Rate: normal - EKG Data When compared to previous EKG there are: previous EKG unavailable Interpretation: nonspecific ST-T wave lexi (T wave inversions in leads III, aVF, V3, V4) - Radiology Data Radiology results: report reviewed (Chest x-ray), image reviewed (Chest x-ray) interpreted by me: Chest x-ray-no definite focal infiltrates, no pneumothorax [facility] [address] [place] [address] XRay Report Signed Patient: ERENDIRA MCMANUS MR#: [id number] : 1945 Acct:[id number] Age/Sex: 75 / F ADM Date: 02/09/21 Loc: ED Attending Dr: Ordering Physician: PAGE LUO MD Date of Service: 02/09/21 Procedure(s): XR chest 1V ap Accession Number(s): [id number] cc: PAGE LUO MD Fluoro Time In Minutes: XR chest 1V ap INDICATION / CLINICAL INFORMATION: chest pain. COMPARISON: 01/22/2021 FINDINGS: SUPPORT DEVICES: None. HEART /PULMONARY VASCULATURE: No significant abnormality. LUNGS / PLEURA: Very mild airspace opacities are noted within the lung bases. No sizable pleural effusion. No pneumothorax. ADDITIONAL FINDINGS: No significant additional findings. IMPRESSION: Mild airspace opacities within the lung bases may reflect atelectasis or developing infiltrate. Signer Name: Lisa Rowe MD Signed: 02/09/2021 3:54 PM Workstation Name: [id number] Transcribed By: JS Dictated By: LISA ROWE MD Electronically Authenticated By: LISA ROWE MD Signed Date/Time: 02/09/21 1554 DD/ 52 TD/TT: Print Cancel - Differential Diagnosis ACS, pericarditis, GERD Critical care attestation.: If time is entered above; I have spent that time in minutes in the direct care of this critically ill patient, excluding procedure time. ED Disposition Clinical Impression: Chest pain Disposition: ADMITTED INPATIENT Is pt being admited?: Yes Does the pt Need Aspirin: Yes Condition: Fair Instructions: Nonspecific Chest Pain, Adult Referrals: PRIMARY CARE, [Primary Care Provider] - 3-5 Days Time of Disposition: 16:06 (Hospitalist called (Dr. Tidwell)) Heart Score - HEART Score History: Moderately suspicious EKG: Non-specific Age: > 65 Risk factors: 1-2 risk factors Troponin: < normal limit HEART Score: 5 - EKG Read Time Time EKG Completed: 13:59 EKG Read Time: 02:05
[2021-02-09 14:55] LABS: Basophils # (Auto) 0.1 K/mm3 (0.0-0.1); Basophils % (Auto) 0.8 % (0.0-1.8); Eosinophils # (Auto) 0.1 K/mm3 (0.0-0.4); Eosinophils % (Auto) 1.1 % (0.0-4.3); Hematocrit 39.1 % (30.3-42.9); Hemoglobin 12.3 gm/dl (10.1-14.3); Lymphocytes # (Auto) 2.1 K/mm3 (1.2-5.4); Lymphocytes % (Auto) 29.7 % (13.4-35.0); Mean Corpuscular HGB Conc 32 % (30-34); Mean Corpuscular Volume 81 fl (79-97); Monocytes # (Auto) 0.7 K/mm3 (0.0-0.8); Monocytes % (Auto) 9.8 % (0.0-7.3); Platelet Count 288 K/mm3 (140-440); Red Blood Count 4.82 M/mm3 (3.65-5.03); Red Cell Distribution Width 14.8 % (13.2-15.2)
[2021-02-09 15:00] LABS: Creatine Kinase MB 1.1 ng/mL (0.0-4.0)
[2021-02-09 15:01] LABS: BUN/Creatinine Ratio 18; Blood Urea Nitrogen 18 mg/dL (7-17); Calcium 9.4 mg/dL (8.4-10.2); Hemolysis Index 4
[2021-02-09 15:13] LABS: INR 0.92 (0.87-1.13)
--- NOTE | 2021-02-09 15:59 | XRay Report ---
XR chest 1V ap INDICATION / CLINICAL INFORMATION: chest pain. COMPARISON: 01/22/2021 FINDINGS: SUPPORT DEVICES: None. HEART /PULMONARY VASCULATURE: No significant abnormality. LUNGS / PLEURA: Very mild airspace opacities are noted within the lung bases. No sizable pleural effu raghav. No pneumothorax. ADDITIONAL FINDINGS: No significant additional findings. IMPRESSION: Mild airspace opacities within the lung bases may reflect atelectasis or developing infiltrate. Signer Name: Pepito Rowe MD Signed: 02/09/2021 3:54 PM Workstation Name: [id number]
[2021-02-09] MEDS ORDERED: oxyCODONE /ACETAMINOPHEN 5-325MG TAB PO PRN (22:48)
[2021-02-09] MEDS ORDERED: MORPHINE 4 MG/1 ML INJ IV PRN (22:48)
[2021-02-09] MEDS ORDERED: ONDANSETRON 4 MG/2 ML INJ IV PRN (22:48)
[2021-02-09] MEDS ORDERED: ACETAMINOPHEN 325 MG TAB PO PRN (22:48)
[2021-02-09] MEDS ORDERED: SODIUM CHLORIDE 0.9% 1000 ML 1,000 ML IV SCH (23:00)
[2021-02-10] MEDS: FAMOTIDINE 20 MG/2 ML INJ IV SCH ×2 (01:28→12:56)
--- NOTE | 2021-02-10 07:15 | History and Physical Report ---
History of Present Illness Date of examination: 02/09/21 Date of admission: 02/09/21 16:09 Chief complaint: Chest pain since a.m. History of present illness: 75-year-old female with retrosternal chest pain and left-sided chest pain since 6 AM. Radiates to her left shoulder and left arm. Also associated shortness of breath. No diaphoresis. No shortness shortness of breath. Patient never had a stress test or cardiac cath. No stents. No fever or chills. Patient has a history of hypertension and diabetes. Compliant with her medications. - Past Medical History --Hypertension: Yes --Diabetes: Yes - Surgical History Additional Surgical History: . cataract surgery - Family History Family history: no significant - Social History Smoking Status: Never Smoker Substance Use Type: None (Denies illicit drug use) - Medications Home Medications: Home Medications Medication Instructions Recorded Confirmed Last Taken Type Oseltamivir [Tamiflu] 75 mg PO BID #8 capsule 04/25/17 Unknown Rx Review of Systems ROS: Stated complaint: CHEST PAIN Other details as noted in HPI Constitutional: denies: diaphoresis, fever Eyes: denies: eye pain ENT: denies: throat pain Respiratory: shortness of breath Cardiovascular: chest pain Endocrine: no symptoms reported Gastrointestinal: denies: nausea, vomiting Genitourinary: denies: dysuria Musculoskeletal: denies: back pain Neurological: denies: headache Medications and Allergies Allergies Allergy/AdvReac Type Severity Reaction Status Date / Time No Known Allergies Allergy Verified 04/24/17 11:02 Home Medications Medication Instructions Recorded Confirmed Last Taken Type Aspirin [Adult Aspirin] 81 mg PO DAILY 02/10/21 02/10/21 02/09/21 09:00 History Ezetimibe [Zetia] 10 mg PO ONCE 02/10/21 02/10/21 02/09/21 09:00 History Glimepiride [Amaryl] 1 mg PO QAM 02/10/21 02/10/21 02/08/21 21:00 History ISOSORBIDE MONOnitrate [Imdur ER] 30 mg PO ONCE 02/10/21 02/10/21 02/09/21 09:00 History Losartan-Hctz 50-12.5 mg Tab 12.5 - 50 mg PO ONCE 02/10/21 02/10/21 02/09/21 09:00 History Metformin HCl [metFORMIN ER 500 mg PO BID 02/10/21 02/10/21 02/09/21 09:00 History Gastric] Montelukast [Singulair] 10 mg PO ONCE 02/10/21 02/10/21 02/09/21 09:00 History hydroCHLOROthiazide 12.5 mg PO BID 02/10/21 02/10/21 02/09/21 09:00 History [Hydrochlorothiazide] Active Meds: Active Medications Acetaminophen (Acetaminophen 325 Mg Tab) 650 mg PO Q4H PRN PRN Reason: Pain MILD(1-3)/Fever >100.5/BENAVIDES Famotidine (Famotidine 20 Mg/2 Ml Inj) 20 mg IV BID JA Last Admin: 02/10/21 01:28 Dose: Not Given Documented by: Sodium Chloride (Nacl 0.9% 1000 Ml) 1,000 mls @ 75 mls/hr IV DIRECT JA Insulin Human Lispro (Insulin Lispro 100 Unit/Ml) 0 unit SUB-Q ACHS JA; Protocol Morphine Sulfate (Morphine 4 Mg/1 Ml Inj) 4 mg IV Q4H PRN PRN Reason: Pain , Severe (7-10) Ondansetron HCl (Ondansetron 4 Mg/2 Ml Inj) 4 mg IV Q3H PRN PRN Reason: Nausea And Vomiting Oxycodone/Acetaminophen (Oxycodone /Acetaminophen 5-325mg Tab) 1 tab PO Q6H PRN PRN Reason: Pain, Moderate (4-6) Sodium Chloride (Sodium Chloride 0.9% 10 Ml Flush Syringe) 10 ml IV BID JA Sodium Chloride (Sodium Chloride 0.9% 10 Ml Flush Syringe) 10 ml IV PRN PRN PRN Reason: LINE FLUSH Exam - Constitutional Vitals: Temp Pulse Resp BP Pulse Ox 98.2 F 59 L 12 143/63 92 02/10/21 03:41 02/10/21 03:41 02/10/21 03:41 02/10/21 03:41 02/10/21 03:41 General appearance: Present: no acute distress, well-nourished - EENT Eyes: Present: PERRL ENT: hearing intact, clear oral mucosa - Neck Neck: Present: supple, normal ROM - Respiratory Respiratory effort: normal Respiratory: bilateral: CTA - Cardiovascular Heart rate: 78 Rhythm: regular Heart Sounds: Present: S1 & S2. Absent: rub, click - Extremities Extremities: pulses symmetrical, No edema Peripheral Pulses: within normal limits - Abdominal General gastrointestinal: Present: soft, non-tender, non-distended, normal bowel sounds Female genitourinary: Present: normal - Integumentary Integumentary: Present: clear, warm, dry - Musculoskeletal Musculoskeletal: gait normal, strength equal bilaterally - Psychiatric Psychiatric: appropriate mood/affect, intact judgment & insight - Neurologic Neurologic: CNII-XII intact, moves all extremities - Allied Health Allied health notes reviewed: nursing, case management HEART Score - HEART Score EKG: Non-specific Age: > 65 Risk factors: 1-2 risk factors Troponin: Troponin T < 0.010 ng/mL (0.00-0.029) 02/09/21 14:23 Troponin: < normal limit - Critical Actions Critical Actions: 4-6 pts:12-16.6% risk of adverse cardiac event. Should be admitted Results - Labs CBC & Chem 7: 02/09/21 14:23 02/09/21 14:23 Labs: Laboratory Last Values WBC 7.1 K/mm3 (4.5-11.0) 02/09/21 14:23 RBC 4.82 M/mm3 (3.65-5.03) 02/09/21 14:23 Hgb 12.3 gm/dl (10.1-14.3) 02/09/21 14:23 Hct 39.1 % (30.3-42.9) 02/09/21 14:23 MCV 81 fl (79-97) 02/09/21 14:23 MCH 26 pg (28-32) L 02/09/21 14:23 MCHC 32 % (30-34) 02/09/21 14:23 RDW 14.8 % (13.2-15.2) 02/09/21 14:23 Plt Count 288 K/mm3 (140-440) 02/09/21 14:23 Lymph % (Auto) 29.7 % (13.4-35.0) 02/09/21 14:23 [place] % (Auto) 9.8 % (0.0-7.3) H 02/09/21 14:23 Eos % (Auto) 1.1 % (0.0-4.3) 02/09/21 14:23 Baso % (Auto) 0.8 % (0.0-1.8) 02/09/21 14:23 Lymph # (Auto) 2.1 K/mm3 (1.2-5.4) 02/09/21 14:23 [place] # (Auto) 0.7 K/mm3 (0.0-0.8) 02/09/21 14:23 Eos # (Auto) 0.1 K/mm3 (0.0-0.4) 02/09/21 14:23 Baso # (Auto) 0.1 K/mm3 (0.0-0.1) 02/09/21 14:23 Seg Neutrophils % 58.6 % (40.0-70.0) 02/09/21 14:23 Seg Neutrophils # 4.2 K/mm3 (1.8-7.7) 02/09/21 14:23 PT 13.4 Sec. (12.2-14.9) 02/09/21 14:23 INR 0.92 (0.87-1.13) 02/09/21 14:23 VBG pH 7.338 (7.320-7.420) 02/09/21 14:23 Sodium 138 mmol/L (137-145) 02/09/21 14:23 Potassium 4.2 mmol/L (3.6-5.0) 02/09/21 14:23 Chloride 98.1 mmol/L (98-107) 02/09/21 14:23 Carbon Dioxide 27 mmol/L (22-30) 02/09/21 14:23 Anion Gap 17 mmol/L 02/09/21 14:23 BUN 18 mg/dL (7-17) H 02/09/21 14:23 Creatinine 1.0 mg/dL (0.6-1.2) 02/09/21 14:23 Estimated GFR > 60 ml/min 02/09/21 14:23 BUN/Creatinine Ratio 18 % 02/09/21 14:23 Glucose 161 mg/dL (65-100) H 02/09/21 14:23 Calcium 9.4 mg/dL (8.4-10.2) 02/09/21 14:23 Total Creatine Kinase 125 units/L (30-135) 02/09/21 14:23 CK-MB (CK-2) 1.1 ng/mL (0.0-4.0) 02/09/21 14:23 CK-MB (CK-2) Rel Index 0.8 (0-4) 02/09/21 14:23 Troponin T < 0.010 ng/mL (0.00-0.029) 02/09/21 14:23 Short CBC 02/09/21 Range/Units 14:23 WBC 7.1 (4.5-11.0) K/mm3 Hgb 12.3 (10.1-14.3) gm/dl Hct 39.1 (30.3-42.9) % Plt Count 288 (140-440) K/mm3 BMP 02/09/21 14:23 Sodium 138 Potassium 4.2 Chloride 98.1 Carbon Dioxide 27 BUN 18 H Creatinine 1.0 Glucose 161 H Calcium 9.4 Cardiac Enzymes 02/09/21 Range/Units 14:23 Total Creatine Kinase 125 (30-135) units/L CK-MB (CK-2) 1.1 (0.0-4.0) ng/mL Troponin T < 0.010 (0.00-0.029) ng/mL Harp/IV: Voiding Method Toilet Assessment and Plan Advance Directives: Yes (Full code) VTE prophylaxis?: Chemical Plan of care discussed with patient/family: Yes - Patient Problems (1) Acute coronary syndrome Current Visit: Yes Status: Acute Plan to address problem: Serial troponins and Lexiscan in the morning If negative discharged tomorrow Patient admitted observation status (2) Hypertension Current Visit: Yes Status: Chronic Qualifiers: Hypertension type: primary hypertension Qualified Code(s): I10 - Essential (primary) hypertension Plan to address problem: Continue antihypertensives and adjust medications (3) T2DM (type 2 diabetes mellitus) Current Visit: Yes Status: Chronic Qualifiers: Diabetes mellitus fpc insulin use: 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
[2021-02-10] MEDS ORDERED: GLIMEPIRIDE 2 MG TAB PO SCH (08:00)
[2021-02-10] MEDS ORDERED: metFORMIN 500 MG TAB PO SCH (08:00)
--- NOTE | 2021-02-10 09:10 | Electrocardiograph Report ---
[facility] Test Date: 2021-02-09 Test Time: 13:59:37 Pat Name: ERENDIRA MCMANUS Department: Room: A481 Gender: F Mid Level Project Manager: : 1945 Requested By: PAGE LUO Order Number: [id number] Reading MD: Franck Dao Measurements Intervals [place] Rate: 63 P: 66 MN: 126 QRS: 19 QRSD: 83 T: QT: 351 QTc: 360 Interpretive Statements Sinus rhythm Nonspecific T abnormalities, lateral leads No previous ECG available for comparison Electronically Signed On 02-10-2021 9:09:35 EDT by Franck Dao
--- NOTE | 2021-02-10 09:49 | Progress Note ---
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 insulin 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 Hospitalist Physical - Constitutional Vitals: Temp Pulse Resp BP Pulse Ox 98.4 F 58 L 18 126/61 98 02/10/21 07:40 02/10/21 07:40 02/10/21 07:40 02/10/21 07:40 02/10/21 07:40 General appearance: Present: no acute distress, well-nourished HEART Score - HEART Score EKG: Non-specific Age: > 65 Risk factors: 1-2 risk factors Troponin: Troponin T < 0.010 ng/mL (0.00-0.029) 02/09/21 14:23 Troponin: < normal limit - Critical Actions Critical Actions: 4-6 pts:12-16.6% risk of adverse cardiac event. Should be admitted Results - Labs CBC & Chem 7: 02/09/21 14:23 02/09/21 14:23 Labs: Laboratory Last Values WBC 7.1 K/mm3 (4.5-11.0) 02/09/21 14:23 RBC 4.82 M/mm3 (3.65-5.03) 02/09/21 14:23 Hgb 12.3 gm/dl (10.1-14.3) 02/09/21 14:23 Hct 39.1 % (30.3-42.9) 02/09/21 14:23 MCV 81 fl (79-97) 02/09/21 14:23 MCH 26 pg (28-32) L 02/09/21 14:23 MCHC 32 % (30-34) 02/09/21 14:23 RDW 14.8 % (13.2-15.2) 02/09/21 14:23 Plt Count 288 K/mm3 (140-440) 02/09/21 14:23 Lymph % (Auto) 29.7 % (13.4-35.0) 02/09/21 14:23 [place] % (Auto) 9.8 % (0.0-7.3) H 02/09/21 14:23 Eos % (Auto) 1.1 % (0.0-4.3) 02/09/21 14:23 Baso % (Auto) 0.8 % (0.0-1.8) 02/09/21 14:23 Lymph # (Auto) 2.1 K/mm3 (1.2-5.4) 02/09/21 14:23 [place] # (Auto) 0.7 K/mm3 (0.0-0.8) 02/09/21 14:23 Eos # (Auto) 0.1 K/mm3 (0.0-0.4) 02/09/21 14:23 Baso # (Auto) 0.1 K/mm3 (0.0-0.1) 02/09/21 14:23 Seg Neutrophils % 58.6 % (40.0-70.0) 02/09/21 14:23 Seg Neutrophils # 4.2 K/mm3 (1.8-7.7) 02/09/21 14:23 PT 13.4 Sec. (12.2-14.9) 02/09/21 14:23 INR 0.92 (0.87-1.13) 02/09/21 14:23 VBG pH 7.338 (7.320-7.420) 02/09/21 14:23 Sodium 138 mmol/L (137-145) 02/09/21 14:23 Potassium 4.2 mmol/L (3.6-5.0) 02/09/21 14:23 Chloride 98.1 mmol/L (98-107) 02/09/21 14:23 Carbon Dioxide 27 mmol/L (22-30) 02/09/21 14:23 Anion Gap 17 mmol/L 02/09/21 14:23 BUN 18 mg/dL (7-17) H 02/09/21 14:23 Creatinine 1.0 mg/dL (0.6-1.2) 02/09/21 14:23 Estimated GFR > 60 ml/min 02/09/21 14:23 BUN/Creatinine Ratio 18 % 02/09/21 14:23 Glucose 161 mg/dL (65-100) H 02/09/21 14:23 POC Glucose 137 mg/dL (70-105) H 02/10/21 08:21 Calcium 9.4 mg/dL (8.4-10.2) 02/09/21 14:23 Total Creatine Kinase 125 units/L (30-135) 02/09/21 14:23 CK-MB (CK-2) 1.1 ng/mL (0.0-4.0) 02/09/21 14:23 CK-MB (CK-2) Rel Index 0.8 (0-4) 02/09/21 14:23 Troponin T < 0.010 ng/mL (0.00-0.029) 02/09/21 14:23 Harp/IV: Voiding Method Toilet Active Medications - Current Medications Current Medications: Generic Name Dose Route Start Last Admin Trade Name Freq PRN Reason Stop Dose Admin Acetaminophen 650 mg 02/09/21 22:48 Acetaminophen 325 Mg Tab PO Q4H PRN Pain MILD(1-3)/Fever >100.5/BENAVIDES Famotidine 20 mg 02/09/21 23:00 02/10/21 01:28 Famotidine 20 Mg/2 Ml Inj IV Not Given BID [facility] Glimepiride 1 mg 02/10/21 08:00 Glimepiride 2 Mg Tab PO QDDIAB [facility] Sodium Chloride 1,000 mls @ 75 mls/hr 02/09/21 23:00 Nacl 0.9% 1000 Ml IV DIRECT [facility] Insulin Human Lispro 0 unit 02/10/21 07:30 Insulin Lispro 100 Unit/Ml SUB-Q ACHS [facility] Protocol Isosorbide Mononitrate 30 mg 02/10/21 10:00 Isosorbide Mononitrate Er 30 Mg Tab PO QDAY [facility] Losartan Potassium 50 mg 02/10/21 10:00 Losartan 50 Mg Tab PO QDAY [facility] Metformin HCl 500 mg 02/10/21 08:00 Metformin 500 Mg Tab PO BIDDIAB [facility] Montelukast Sodium 10 mg 02/10/21 22:00 Montelukast 10 Mg Tab PO QHS [facility] Morphine Sulfate 4 mg 02/09/21 22:48 Morphine 4 Mg/1 Ml Inj IV Q4H PRN Pain , Severe (7-10) Ondansetron HCl 4 mg 02/09/21 22:48 Ondansetron 4 Mg/2 Ml Inj IV Q3H PRN Nausea And Vomiting Oxycodone/Acetaminophen 1 tab 02/09/21 22:48 Oxycodone /Acetaminophen 5-325mg Tab PO Q6H PRN Pain, Moderate (4-6) Sodium Chloride 10 ml 02/10/21 10:00 Sodium Chloride 0.9% 10 Ml Flush Syringe IV BID JA Sodium Chloride 10 ml 02/09/21 22:48 Sodium Chloride 0.9% 10 Ml Flush Syringe IV PRN PRN LINE FLUSH
[2021-02-10] MEDS ORDERED: LOSARTAN 50 MG TAB PO SCH (10:00)
[2021-02-10 12:21] VITALS: BP 150/69
[2021-02-10 13:24] LABS: Creatine Kinase MB 1.2 ng/mL (0.0-4.0)
--- NOTE | 2021-02-10 15:53 | Discharge Summary ---
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 Hospitalization Condition: Fair Hospital course: Late discharge pending second set of cardiac enzymes Second set of cardiac enzymes negative Patient symptoms significantly improved Noncardiac chest pain secondary to GERD Protonix prescription given Advised to follow primary care physician and cardiology if needed Patient is stable at discharge Discharge diagnosis: --COVID-19 negative --Atypical chest pain Current Visit: Yes Status: Acute 2 sets of cardiac enzymes negative EKG no acute ST-T changes Patient symptoms resolved Chest pain probably secondary to GERD --GERD; Probably the cause of chest pain Protonix --Dyslipidemia; Low-cholesterol diet Lipid-lowering medications -- Hypertension Current Visit: Yes Status: Chronic Continue antihypertensives and adjust medications --T2DM (type 2 diabetes mellitus) Current Visit: Yes Status: Chronic Accu-Chek sliding scale coverage ADA diet Oral hypoglycemics --DVT prophylaxis Current Visit: Yes Status: Acute Plan to address problem: On anticoagulation and GI prophylaxis Disposition: HOME / SELF CARE / HOMELESS Final Discharge Diagnosis (Prints w/discharge instructions): Atypical chest pain. Acute coronary syndrome. hypertension. type 2 diabetes mellitus. GERD. Dyslipidemia. COVID-19 negative Time spent for discharge: 35 min Core Measure Documentation - Palliative Care Palliative Care/ Comfort Measures: Not Applicable - Core Measures Any of the following diagnoses?: none Exam - Constitutional Vitals: Temp Pulse Resp BP Pulse Ox 98.0 F 58 L 18 150/69 98 02/10/21 11:20 02/10/21 07:40 02/10/21 11:20 02/10/21 11:20 02/10/21 07:40 General appearance: Present: no acute distress, well-nourished - EENT Eyes: Present: PERRL, EOM intact - Neck Neck: Present: supple, normal ROM - Respiratory Respiratory effort: normal Respiratory: bilateral: diminished, negative: rales, rhonchi, wheezing - Cardiovascular Rhythm: regular Heart Sounds: Present: S1 & S2 - Extremities Extremities: no ischemia, No edema - Abdominal General gastrointestinal: Present: soft, non-tender, non-distended, normal bowel sounds - Integumentary Integumentary: Present: clear, warm - Musculoskeletal Musculoskeletal: strength equal bilaterally, generalized weakness - Psychiatric Psychiatric: appropriate mood/affect, cooperative - Neurologic Neurologic: moves all extremities Plan Activity: advance as tolerated, fall precautions Diet: diabetic, other (Cardiac diet) Additional Instructions: Advised to see private money order clerk if you have recurrent chest pain for further evaluation and management. Advised to comply with medications, diet, follow-up visits. If you have worsening symptoms contact MD or go to the emergency room as needed Follow up with: PRIMARY CARE, [Primary Care Provider] - 3-5 Days JACEK KATZ MD [Staff Physician] - 14 Days Prescriptions: Pantoprazole [Protonix TAB] 20 mg PO QDAY #30 tablet.
[2021-02-10] MEDS: INSULIN LISPRO 100 UNIT/ML SUB-Q SCH (17:14)
[2021-02-10] MEDS ORDERED: MONTELUKAST 10 MG TAB PO SCH (22:00)
== END 2021-02-10 17:00 | disposition home or self-care (01) ==
LOC: ED 13:10 → 4A 16:09
PROVIDERS: ADMIT Internal Medicine; ATTEND Internal Medicine
DX: I24.9 Acute ischemic heart disease, unspecified (principal); Z20.822 Contact with and (suspected) exposure to COVID-19; R07.89 Other chest pain; I10 Essential (primary) hypertension; E11.9 Type 2 diabetes mellitus without complications; K21.9 Gastro-esophageal reflux disease without esophagitis; E78.5 Hyperlipidemia, unspecified; R29.818 Other symptoms and signs involving the nervous system; Z98.891 History of uterine scar from previous surgery; Z98.49 Cataract extraction status, unspecified eye; Z79.82 Long term (current) use of aspirin; Z79.84 Long term (current) use of oral hypoglycemic drugs
CPT/HCPCS: 36415; 71045; 80048; 82550; 82553; 82805; 82962; 84484; 85025; 85610; 93005; 97162; 99285; G0378; U0003